=== PATIENT | female | born 1995 | race Caucasian/White ===

== ENCOUNTER 2021-07-21 14:17 | Inpatient (IN) | payer BC ==
[2021-07-21] MEDS ORDERED: hydrALAZINE 20 MG/ML VIAL SLOW IVP PRN (14:31)
[2021-07-21] MEDS ORDERED: Acetaminophen 500 MG TAB PO PRN (14:31)
[2021-07-21] MEDS ORDERED: Misoprostol 200 MCG TAB PR PRN (14:31)
[2021-07-21] MEDS ORDERED: Diphenoxylate HCl/Atropine Tablet PO PRN ×2 (14:31)
[2021-07-21] MEDS ORDERED: Ibuprofen 800 MG TAB PO PRN (14:31)
[2021-07-21] MEDS ORDERED: Lidocaine 1% (PF) 30 ML VIAL SC PRN (14:31)
[2021-07-21] MEDS ORDERED: Promethazine HCl 25 MG/ML VIAL IM PRN ×2 (14:31→23:16)
[2021-07-21] MEDS ORDERED: Ondansetron PF 4 MG/2 ML Vial IVP PRN ×2 (14:31→23:16)
[2021-07-21] MEDS ORDERED: Zolpidem Tartrate 5 MG TAB PO PRN (14:31)
[2021-07-21] MEDS ORDERED: HYDROcodone/Acetaminophen 5/325 mg Tablet PO PRN ×2 (14:31)
[2021-07-21] MEDS ORDERED: Docusate 100 MG CAP PO PRN (14:31)
[2021-07-21] MEDS ORDERED: Butorphanol Tartrate 1 MG/ML VIAL SLOW IVP PRN (14:31)
[2021-07-21] MEDS ORDERED: NS w/ Oxytocin 30 units 500 ML IV SCH (14:45)
[2021-07-21] MEDS: Lactated Ringer's 1,000 ML IV SCH ×2 (15:20→18:04)
[2021-07-21 15:29] VITALS: BMI 35.2
[2021-07-21 16:46] LABS: Hemoglobin 10.8 g/dL (12.0-15.5); Mean Corpuscular HGB CONC 32.6 g/dL (32.0-36.0); Mean Corpuscular Hemoglobin 30.3 pg (27.0-33.0); Mean Corpuscular Volume 92.7 fl (81.6-98.3); Mean Platelet Volume 10.7 fl (7.4-10.4); Platelet Count 227 10x3/uL (150-450); RBC Distribution Width 12.3 % (11.5-14.5); Red Blood Cell (RBC) Count 3.57 10x6/uL (3.90-5.03); White Blood Cell (WBC) Count 13.1 10x3/uL (3.5-10.5)
[2021-07-21 17:31] LABS: HIV (1/2) Antibody/Antigen Non-Reactive (NonReactive); HIV 1/2 INDEX 0.13 S/CO (<1.00); Hep B Surf Ag Non-Reactive S/CO (NonReactive); Syphilis Antibody Nonreactive (Nonreactive); Syphilis Antibody Index 0.06 S/CO (<1.00 Non-Reactive)
[2021-07-21 17:41] LABS: SARS-CoV-2 NAA Rapid Test DETECTED (NotDetected)
[2021-07-21 17:54] LABS: HBSAg Index 0.18 S/CO (0-0.99)
[2021-07-21] MEDS: methylPREDNISolone Sod Succ/PF 125 MG/2 ML VIAL IVP SCH (18:04)
[2021-07-21] MEDS ORDERED: Hydrocortisone 1% Cream 30 GM TUBE TOP PRN (21:54)
[2021-07-21] MEDS ORDERED: Fentanyl 2 mcg/Bup 0.1% Cadd 100 ML ONE (22:30)
[2021-07-21] MEDS ORDERED: Naloxone HCl 0.4 mg/ml Vial IVP PRN ×2 (23:16)
[2021-07-21] MEDS ORDERED: diphenhydrAMINE 50 MG/ML VIAL IVP PRN (23:16)
[2021-07-21] MEDS ORDERED: Lactated Ringer's 500 ML IV PRN (23:16)
[2021-07-21] MEDS ORDERED: Hydrocerin (Eucerin) Cream 120 gm Jar TOP PRN (23:16)
[2021-07-21] MEDS ORDERED: Acetaminophen 325 MG TAB PO PRN (23:16)
[2021-07-21] MEDS ORDERED: ePHEDrine Sulfate 50 MG/10 ML VIAL SLOW IVP PRN (23:16)
[2021-07-21] MEDS ORDERED: Fentanyl 2 mcg/Bupivacaine 0.1% Cassette 100 ML EPIDURAL SCH (23:30)
[2021-07-21] MEDS ORDERED: Communication Order-Pharmacy FS SCH (23:30)
[2021-07-22] MEDS ORDERED: Methylergonovine 0.2 MG/ML VIAL ONE (00:03)
[2021-07-22] MEDS: methylPREDNISolone Sod Succ/PF 125 MG/2 ML VIAL IVP SCH ×2 (00:29→07:03)
[2021-07-22] MEDS: Lactated Ringer's 1,000 ML IV SCH (00:42)
[2021-07-22] MEDS ORDERED: Acetaminophen/Codeine 30-300mg Tablet PO PRN ×2 (05:48)
[2021-07-22] MEDS ORDERED: hydrALAZINE 20 MG/ML VIAL SLOW IVP PRN (05:48)
[2021-07-22] MEDS ORDERED: diphenhydrAMINE 25 MG CAP PO PRN (05:48)
[2021-07-22] MEDS ORDERED: Misoprostol 200 MCG TAB VAG PRN (05:48)
[2021-07-22] MEDS ORDERED: Preparation H Ointment 28 GM TUBE PR PRN (05:48)
[2021-07-22] MEDS ORDERED: Milk Of Magnesia 30 ML UDCUP PO PRN (05:48)
[2021-07-22] MEDS ORDERED: Bisacodyl 10 MG SUPP PR PRN (05:48)
[2021-07-22] MEDS ORDERED: Boostrix 0.5 ML (Tdap) VIAL IM ONE (05:48)
[2021-07-22] MEDS ORDERED: Lanolin Ointment 7 GM TUBE TOP PRN (05:48)
[2021-07-22] MEDS ORDERED: Ondansetron PF 4 MG/2 ML Vial IVP PRN (05:48)
[2021-07-22] MEDS ORDERED: NS w/ Oxytocin 30 units 500 ML IV SCH (06:00)
[2021-07-22] MEDS: Ferrous Sulfate 325 MG TAB PO SCH ×2 (09:59→16:16)
[2021-07-22] MEDS: Ibuprofen 800 MG TAB PO SCH ×3 (10:00→21:00)
[2021-07-22] MEDS: Docusate Calcium (SURFAK) 240 MG CAP PO SCH ×2 (10:00→21:00)
[2021-07-22] MEDS: Prenatal Vitamin 1 TAB PO SCH (10:00)
[2021-07-22 11:54] LABS: SARS-CoV-2 PCR by NAA DETECTED (NotDetected)
[2021-07-23] MEDS: Ibuprofen 800 MG TAB PO SCH (05:43)
[2021-07-23 06:53] LABS: Hemoglobin 8.3 g/dL (12.0-15.5); Mean Corpuscular HGB CONC 31.8 g/dL (32.0-36.0); Mean Corpuscular Hemoglobin 30.9 pg (27.0-33.0); Platelet Count 218 10x3/uL (150-450); RBC Distribution Width 12.7 % (11.5-14.5); Red Blood Cell (RBC) Count 2.69 10x6/uL (3.90-5.03); White Blood Cell (WBC) Count 13.1 10x3/uL (3.5-10.5)
[2021-07-23 09:19] VITALS: BP 116/58; TEMP 98.4
[2021-07-23] MEDS: Prenatal Vitamin 1 TAB PO SCH (09:35)
[2021-07-23] MEDS: Ferrous Sulfate 325 MG TAB PO SCH (09:35)
[2021-07-23] MEDS: Docusate Calcium (SURFAK) 240 MG CAP PO SCH (09:35)
== END 2021-07-23 12:00 | disposition home or self-care (01) | DRG 805 ==
LOC: CSHLD 14:17 → CSHPP 07-22 08:50
PROVIDERS: ADMIT Obstetrics & Gynecology; ATTEND Obstetrics & Gynecology
PROC: 10E0XZZ Delivery of Products of Conception, External Approach (ICD-10-PCS; principal; 2021-07-21)
PROC: 8E0ZXY6 Isolation (ICD-10-PCS; 2021-07-21)
PROC: 10907ZC Drainage of Amniotic Fluid, Therapeutic from Products of Conception, Via Natural or Artificial Opening (ICD-10-PCS; 2021-07-21)
PROC: 0HQ9XZZ Repair Perineum Skin, External Approach (ICD-10-PCS; 2021-07-21)
DX: O98.52 Other viral diseases complicating childbirth (principal); U07.1 COVID-19; Z37.0 Single live birth; O70.0 First degree perineal laceration during delivery; Z3A.38 38 weeks gestation of pregnancy
CPT/HCPCS: 36415; 85027; 85461; 86780; 86850; 86870; 86900; 86901; 87340; 87389; 90384; 96372; J2590; J2930; J7120; U0002; U0003; U0005